=== PATIENT | female | born 1965 | race Caucasian/White ===

== ENCOUNTER 2019-01-11 10:19 | Emergency (ER) | payer OTHER ==
[2019-01-11 10:25] VITALS: BP 132/83; PULSE 97; TEMP 98.2; BMI 31.1
--- NOTE | 2019-01-11 10:45 | PDOC ---
History of Present Illness - General Chief Complaint: Sore Throat Stated Complaint: SORE THROAT Time Seen by Provider: 01/11/19 10:32 History Source: Patient Exam Limitations: No Limitations - History of Present Illness Initial Comments: 01/11/19 10:41 Patient here with complaints of congestion, sore throat pain, runny nose without resolved from conservative measures. Has taken no medication other than the Benadryl earlier in the week. States symptoms have been persistent for 6 days now. Timing/Duration: reports: getting worse Severity: reports: mild, moderate Associated Symptoms: reports: cough, fever/chills, nasal congestion, nasal drainage, sore throat (worse in the morning) Past History - Travel Traveled outside of the country in the last 30 days: No Close contact w/someone who was outside of country & ill: No - Past Medical History Allergies/Adverse Reactions: Allergies Allergy/AdvReac Type Severity Reaction Status Date / Time sea food Allergy Uncoded 01/11/19 10:24 Home Medications: Ambulatory Orders Acetaminophen 1,000 mg PO Q6H PRN #30 tablet 01/11/19 Amlodipine Besylate [Norvasc -] 5 mg PO DAILY 01/11/19 Lisinopril [Prinivil] 5 mg PO DAILY 01/11/19 COPD: No HTN: Yes - Surgical History Abdominal Surgery: Yes (tubal ligation) Appendectomy: Yes - Suicide/Smoking/Psychosocial Hx Smoking History: Never smoked Have you smoked in the past 12 months: No Hx Alcohol Use: No Drug/Substance Use Hx: No Substance Use Type: None Review of Systems - Review of Systems Able to Perform ROS?: Yes Is the patient limited Korean proficient: Yes Constitutional: Yes: Symptoms Reported, See HPI, Fever, Malaise HEENTM: Yes: See HPI. No: Symptoms Reported Respiratory: Yes: Symptoms reported, See HPI, Cough, Shortness of Breath, Wheezing ABD/GI: Yes: See HPI. No: Symptoms Reported Musculoskeletal: Yes: See HPI. No: Symptoms Reported Integumentary: Yes: Symptoms Reported, See HPI All Other Systems: Reviewed and Negative *Physical Exam - Vital Signs Last Vital Signs Temp Pulse Resp BP Pulse Ox 98.2 F 97 H 18 132/83 99 01/11/19 10:22 01/11/19 10:22 01/11/19 10:22 01/11/19 10:22 01/11/19 10:22 - Physical Exam General Appearance: Yes: Nourished, Appropriately Dressed, Apparent Distress, Mild Distress HEENT: positive: REGINA (glassy), Pharyngeal Erythema, Tonsillar Erythema, Rhinorrhea (clear). negative: TMs Normal (unable to visualize secondary to cerumen impaction), Tonsillar Exudate Neck: positive: Supple, Lymphadenopathy (R), Lymphadenopathy (L) Respiratory/Chest: positive: Lungs Clear, Normal Breath Sounds. negative: Rhonchi, Wheezing Gastrointestinal/Abdominal: positive: Soft. negative: Tender Extremity: positive: Normal Capillary Refill, Normal Inspection Integumentary: positive: Normal Color, Dry, Warm, Pale Neurologic: positive: microbiology lab analyst II-XII NML intact, Fully Oriented, Alert, Normal Mood/ Affect, Normal Response, Motor Strength 5/5 *DC/Admit/Observation/Transfer Diagnosis at time of Disposition: Common cold virus - Discharge Dispostion Disposition: HOME Condition at time of disposition: Stable Decision to Admit order: No - Referrals - Patient Instructions Printed Discharge Instructions: DI for Viral Upper Respiratory Infection -- Adult Additional Instructions: Rest, drink lots of fluids: Teas, water, soups, Pedialyte Saltwater gargles Steamy showers/seem to face break up mucus Avoid contact with others until fevers and cough resolved Lots of handwashing and good hygiene Continue [id number] medications for symptomatic relief Tylenol or Motrin for fever and pain Followup with private physician in one to 2 days as needed Return to emergency department for worsened symptoms, fevers, dehydration - Post Discharge Activity
== END 2019-01-11 10:50 | disposition home or self-care (01) ==
LOC: JERFT 10:19 → JER 10:19 → JERFT 10:50
DX: J06.9 Acute upper respiratory infection, unspecified (principal); B97.89 Other viral agents as the cause of diseases classified elsewhere
CPT/HCPCS: 99281-25